=== PATIENT | female | born 1950 | race Caucasian/White ===

== ENCOUNTER → 2016-08-09 | Outpatient (CLI) | payer OTHER ==
[~2016-08-09] VITALS: Ht 165.1 cm; Wt 111.1 kg
[~2016-08-09] MED LIST: CO Q30CA4 PO; FLUO20CA8 PO; LIDOCAINE 2% INJ 100 MG/5 ML SDV (FOR ANES.) As Ordered ONE; MELA0.02 PO; MELO7.5T6 PO; MULTCAP11 PO; NS 1,000 ML IV SCH; PRED10TA PO; PROPOFOL 200 MG/20 ML VIAL As Ordered ONE; VITA200016 PO
--- NOTE | 2016-08-09 09:37 | ROOR ---
Patient Name: Le Rodriguez Procedure Date: 08/09/2016 9:17 AM Date of : 1950 Age: 66 Room: [facility] Gender: Female Note Status: Finalized Procedure: Colonoscopy Indications: High risk colon cancer surveillance: Personal history of colonic polyps, Last colonoscopy: February 2013 Providers: Jitendra RIVERA MD Referring MD: TALA LEDESMA MD Requesting Provider: Medicines: Monitored Anesthesia Care Complications: No immediate complications. Procedure: Pre-Anesthesia Assessment: - The heart rate, respiratory rate, oxygen saturations, blood pressure, adequacy of pulmonary ventilation, and response to care were monitored throughout the procedure. The Colonoscope was introduced through the anus and advanced to the cecum, identified by appendiceal orifice and ileocecal valve. The colonoscopy was performed without difficulty. The patient tolerated the procedure well. The quality of the bowel preparation was good. Findings: The perianal and digital rectal examinations were normal. A diminutive polyp was found in the cecum. The polyp was sessile. The polyp was removed with a cold snare. Resection and retrieval were complete. A few small-mouthed diverticula were found in the sigmoid colon. The exam was otherwise without abnormality on direct and retroflexion views. Impression: - One diminutive polyp in the cecum, removed with a cold snare. Resected and retrieved. - Mild diverticulosis in the sigmoid colon. - The examination was otherwise normal on direct and retroflexion views. Recommendation: - Repeat colonoscopy in 5 years for surveillance. Jitendra Rivera MD Jitendra RIVERA MD 08/09/2016 9:36:45 AM This report has been signed electronically. Number of Addenda: 0 Note Initiated On: 08/09/2016 9:17 AM Estimated Blood Loss: Estimated blood loss: none.
[2016-08-09 09:57] VITALS: BP 143/93
== END ==
LOC: M OPP 08:09
PROVIDERS: ATTEND Internal Medicine Gastroenterology
DX: Z12.11 Encounter for screening for malignant neoplasm of colon (principal); Z86.010 Personal history of colon polyps; D12.0 Benign neoplasm of cecum; K57.30 Diverticulosis of large intestine without perforation or abscess without bleeding; M19.90 Unspecified osteoarthritis, unspecified site; F32.9 Major depressive disorder, single episode, unspecified; M35.3 Polymyalgia rheumatica; Z79.899 Other long term (current) drug therapy; Z88.5 Allergy status to narcotic agent

== ENCOUNTER → 2017-04-27 | Outpatient (CLI) | payer MEDICARE | LOC: M WHC 14:41 | DX: Z01.419 Encounter for gynecological examination (general) (routine) without abnormal findings (principal); Z12.31 Encounter for screening mammogram for malignant neoplasm of breast (principal); Z13.820 Encounter for screening for osteoporosis; Z78.0 Asymptomatic menopausal state | CPT/HCPCS: 77067 ==

== ENCOUNTER → 2019-01-17 | Outpatient (REF) | payer MEDICARE ==
[~2019-01-17] MED LIST changes: -LIDOCAINE 2% INJ 100 MG/5 ML SDV (FOR ANES.) As Ordered ONE; -MELA0.02 PO; +MELA3TAB49 PO; -MELO7.5T6 PO; +MELO7.5T7 PO; -NS 1,000 ML IV SCH; -PRED10TA PO; +PRED10TA2 PO; -PROPOFOL 200 MG/20 ML VIAL As Ordered ONE
[2019-01-19 14:22] LABS: HPV HYBRID CAPTURE II Negative (Negative)
== END ==
LOC: M SFHCWAGY 11:29
PROVIDERS: ATTEND Nurse Practitioner Women's Health
DX: N95.0 Postmenopausal bleeding (principal)
CPT/HCPCS: 87624; G0123; G0463

== ENCOUNTER → 2019-01-26 | Outpatient (REF) | payer MEDICARE | LOC: M SFHCWAGY 10:31 | PROVIDERS: ATTEND Nurse Practitioner Women's Health | DX: N95.0 Postmenopausal bleeding (principal); R93.89 Abnormal findings on diagnostic imaging of other specified body structures ==

== ENCOUNTER → 2019-12-16 | Outpatient (CLI) | payer MEDICARE, MEDICAID ==
[~2019-12-16] MED LIST changes: +FLUO20CA20 PO; -FLUO20CA8 PO
== END ==
LOC: M LABSMTC 09:07
PROVIDERS: ATTEND Anesthesiology
DX: Z01.812 Encounter for preprocedural laboratory examination (principal); Z20.828 Contact with and (suspected) exposure to other viral communicable diseases
CPT/HCPCS: C9803; U0003

== ENCOUNTER 2019-12-21 08:05 | Day surgery (SDC) | payer MEDICARE, MEDICAID ==
[~2019-12-21] VITALS: Ht 165.1 cm; Wt 118.1 kg
[~2019-12-21 08:05] MED LIST changes: +LIDOCAINE 2% 100MG/5ML SDV (FOR ANES.) As Ordered ONE; +NS 1,000 ML IV ONE; +propofoL 200 MG/20 ML VIAL As Ordered ONE
[2019-12-21] MEDS ORDERED: GLUCAGON INJ 1MG VIAL As Ordered ONE (09:34)
[2019-12-21] MEDS ORDERED: propofoL 200 MG/20 ML VIAL As Ordered ONE (09:36)
[2019-12-21 10:21] VITALS: BP 163/93
--- NOTE | 2019-12-26 11:37 | ROOR ---
Patient Name: Le Rodriguez Procedure Date: 12/21/2019 9:22 AM Date of : 1950 Age: 69 Room: [facility] Gender: Female Note Status: Finalized Procedure: Colonoscopy Indications: High risk colon cancer surveillance: Personal history of colonic polyps, Last colonoscopy: July 2016 Providers: Jitendra RIVERA MD Referring MD: TALA LEDESMA MD Requesting Provider: Medicines: Monitored Anesthesia Care Complications: No immediate complications. Procedure: Pre-Anesthesia Assessment: - The heart rate, respiratory rate, oxygen saturations, blood pressure, adequacy of pulmonary ventilation, and response to care were monitored throughout the procedure. The Colonoscope was introduced through the anus and advanced to the cecum, identified by appendiceal orifice and ileocecal valve. The colonoscopy was performed without difficulty. The patient tolerated the procedure well. The quality of the bowel preparation was good. Findings: The perianal and digital rectal examinations were normal. Three sessile polyps were found in the sigmoid colon and ascending colon. The polyps were diminutive in size. These polyps were removed with a cold snare. Resection and retrieval were complete. To prevent bleeding after the polypectomy, two hemostatic clips were successfully placed. Mild sigmoid diverticulosis and small internal hemorrhoids. The exam was otherwise without abnormality on direct and retroflexion views. Impression: - Three diminutive polyps in the sigmoid colon and in the ascending colon, removed with a cold snare. Resected and retrieved. Clips were placed. - Mild sigmoid diverticulosis and small internal hemorrhoids. - The examination was otherwise normal on direct and retroflexion views. Recommendation: - Repeat colonoscopy in 5 years for surveillance. Jitendra Rivera MD Jitendra RIVERA MD 12/21/2019 9:55:14 AM Electronically signed by Jitendra RIVERA MD Number of Addenda: 0 Note Initiated On: 12/21/2019 9:22 AM Estimated Blood Loss: Estimated blood loss: none.
== END 2019-12-21 10:23 | disposition home or self-care (01) ==
LOC: M OPP 08:05
PROVIDERS: ATTEND Internal Medicine Gastroenterology
DX: Z12.11 Encounter for screening for malignant neoplasm of colon (principal); Z86.010 Personal history of colon polyps; K57.30 Diverticulosis of large intestine without perforation or abscess without bleeding; D12.2 Benign neoplasm of ascending colon; D12.5 Benign neoplasm of sigmoid colon; Z79.899 Other long term (current) drug therapy; Z88.1 Allergy status to other antibiotic agents; Z88.5 Allergy status to narcotic agent
CPT/HCPCS: 45385; 88305; J1610

== ENCOUNTER → 2020-02-11 | Outpatient (REF) | payer MEDICARE, MEDICAID ==
[~2020-02-11] MED LIST changes: -LIDOCAINE 2% 100MG/5ML SDV (FOR ANES.) As Ordered ONE; -NS 1,000 ML IV ONE; -propofoL 200 MG/20 ML VIAL As Ordered ONE
== END ==
LOC: M LAB REF 17:10
PROVIDERS: ATTEND Physician Assistant
DX: D23.62 Other benign neoplasm of skin of left upper limb, including shoulder (principal)

== ENCOUNTER → 2020-02-16 | Outpatient (CLI) | payer MEDICARE, MEDICAID | LOC: M LABSMTC 09:32 | PROVIDERS: ATTEND Family Medicine | DX: Z20.828 Contact with and (suspected) exposure to other viral communicable diseases (principal) | CPT/HCPCS: C9803; U0003 ==

== ENCOUNTER → 2020-03-21 | Outpatient (CLI) | payer MEDICARE, MEDICAID ==
--- NOTE | 2020-03-21 16:37 | REPMRS ---
Patient History The patient states she has not had a clinical breast exam in over a year. Family history of breast cancer at age 50 or over in maternal aunt. Benign cyst aspiration of the right breast. Digital Woman Screen Mammo: March 21, 2020 - Exam #: [id number] Bilateral CC and MLO view(s) were taken. Technologist: Belinda Jasso, Technologist Prior study comparison: April 27, 2017, digital woman screen mammo performed at [facility]. March 31, 2016, digital woman screen mammo performed at [facility]. February 13, 2014, digital woman screen mammo performed at [facility]. FINDINGS: The breast tissue is almost entirely fat. The Volpara volumetric breast density category is: A. There has been no change in the appearance of the mammogram from the prior studies. There is no interval development of dominant mass, architectural distortion, or grouped microcalcification typical of malignancy. 3-D tomosynthesis shows no additional findings. Assessment: BI-RADS/ACR category 1 mammogram. Negative Mammogram. Recommendation Routine screening mammogram of both breasts in 1 year (for women over age 40). This patient's [facility] Lifetime Breast Cancer RIsk is estimated at 7.2 %. This mammogram was interpreted with the aid of an FDA-approved computer-aided dectection system. Electronically Signed By: Feliz Phillips MD 03/21/20 [id number]
== END ==
LOC: M WHC 15:02
PROVIDERS: ATTEND Internal Medicine
DX: Z12.31 Encounter for screening mammogram for malignant neoplasm of breast (principal)

== ENCOUNTER → 2021-03-27 | Outpatient (CLI) | payer MEDICARE, MEDICAID ==
[~2021-03-27] MED LIST changes: +ELIQ2.5T PO; +FLUO40CA PO
== END ==
LOC: M LABSMTC 10:45
PROVIDERS: ATTEND Anesthesiology
DX: Z01.812 Encounter for preprocedural laboratory examination (principal); Z20.822 Contact with and (suspected) exposure to COVID-19

== ENCOUNTER → 2021-03-31 | Outpatient (CLI) | payer MEDICARE, MEDICAID ==
[~2021-03-31] MED LIST changes: +FLUO-96 PO; -FLUO20CA20 PO
== END ==
LOC: M LABSMTC 08:24
PROVIDERS: ATTEND Anesthesiology
DX: Z01.812 Encounter for preprocedural laboratory examination (principal); Z11.52 Encounter for screening for COVID-19

== ENCOUNTER 2021-04-01 13:17 | Day surgery (SDC) | payer MEDICARE, MEDICAID ==
[~2021-04-01] VITALS: Ht 165.1 cm; Wt 120.7 kg
[~2021-04-01 13:17] MED LIST changes: +LIDOCAINE 2% 100MG/5ML SDV (FOR ANES.) As Ordered ONE; +LR 1,000 ML IV ONE; +MIDAZOLAM INJ 2MG/2ML VIAL (J2250 PER 1MG) As Ordered ONE; +fentaNYL 100 MCG/2 ML INJECTION As Ordered ONE; +propofoL 200 MG/20 ML VIAL As Ordered ONE
[2021-04-01 13:52] LABS: HEMATOCRIT 44.9 % (36.0-47.0); HEMOGLOBIN 14.9 g/dl (12.0-15.5); MEAN CORPUSCULAR HEMOGLOBIN 29.6 pg (27.0-33.0); MEAN CORPUSCULAR HGB CONC 33.2 g/dl (32.0-36.5); MEAN CORPUSCULAR VOLUME 89.3 fl (80.0-96.0); PLATELET COUNT, AUTOMATED 282 10^3/uL (150-450); RED BLOOD COUNT 5.03 10^6/uL (4.00-5.40); WHITE BLOOD COUNT 7.2 10^3/uL (4.0-10.0)
[2021-04-01] MEDS ORDERED: ROCURONIUM BROMIDE 50 MG/5 ML VIAL As Ordered ONE (15:34)
[2021-04-01] MEDS ORDERED: dexameTHASONE 4 MG/ML 1ML VIAL (J1100 PER 1MG) As Ordered ONE (15:35)
[2021-04-01] MEDS ORDERED: ONDANSETRON 4MG/2ML VIAL As Ordered ONE (15:35)
[2021-04-01] MEDS ORDERED: KETOROLAC 60MG 2ML VIAL As Ordered ONE (15:35)
[2021-04-01] MEDS ORDERED: propofoL 200 MG/20 ML VIAL As Ordered ONE (15:35)
[2021-04-01] MEDS ORDERED: SUGAMMADEX SODIUM 500 MG/5 ML VIAL (BRIDION) As Ordered ONE (15:36)
[2021-04-01] MEDS ORDERED: LR 1,000 ML IV SCH ×2 (16:20)
[2021-04-01] MEDS ORDERED: ACETAMINOPHEN 500 MG TAB PO ONE ×4 (16:20→17:00)
[2021-04-01] MEDS ORDERED: ONDANSETRON 4MG/2ML VIAL IV PRN (16:20)
[2021-04-01] MEDS ORDERED: oxyCODONE 5MG TAB PO PRN (16:20)
[2021-04-01] MEDS ORDERED: fentaNYL 100 MCG/2 ML INJECTION IV PRN (16:20)
[2021-04-01 17:27] VITALS: BP 127/69
== END 2021-04-01 17:44 | disposition home or self-care (01) ==
LOC: M SDC 13:17
PROVIDERS: ATTEND Specialist
DX: N92.4 Excessive bleeding in the premenopausal period (principal); N84.8 Polyp of other parts of female genital tract; G47.30 Sleep apnea, unspecified; E78.5 Hyperlipidemia, unspecified; K21.9 Gastro-esophageal reflux disease without esophagitis
CPT/HCPCS: 36415; 58558; 85027; 88305; J1100; J1885; J2250; J2405; J3010

== ENCOUNTER → 2021-05-14 | Outpatient (CLI) | payer MEDICARE, MEDICAID ==
[~2021-05-14] MED LIST changes: -LIDOCAINE 2% 100MG/5ML SDV (FOR ANES.) As Ordered ONE; -LR 1,000 ML IV ONE; -MIDAZOLAM INJ 2MG/2ML VIAL (J2250 PER 1MG) As Ordered ONE; -fentaNYL 100 MCG/2 ML INJECTION As Ordered ONE; -propofoL 200 MG/20 ML VIAL As Ordered ONE
== END ==
LOC: M WHC 13:58
PROVIDERS: ATTEND Nurse Practitioner Family
DX: Z12.31 Encounter for screening mammogram for malignant neoplasm of breast (principal); Z13.820 Encounter for screening for osteoporosis

== ENCOUNTER → 2021-08-12 | Outpatient (REF) | payer MEDICARE, MEDICAID | LOC: M SFHCDERM 17:19 | PROVIDERS: ATTEND Physician Assistant | DX: L28.1 Prurigo nodularis (principal) ==

== ENCOUNTER 2022-04-11 08:33 | Observation (INO) | payer MEDICARE, MEDICAID ==
[~2022-04-11] VITALS: Ht 165.1 cm; Wt 122.7 kg
[~2022-04-11 08:33] MED LIST changes: +CO Q PO; -CO Q30CA4 PO
[2022-04-11] MEDS ORDERED: ASPIRIN 81MG CHEW TABLET PO ONE (08:50)
[2022-04-11] MEDS ORDERED: METOPROLOL 5 MG/5 ML VIAL IV PRN (08:50)
[2022-04-11 09:13] LABS: BASO # 0.1 10^3/uL (0.0-0.2); BASO % 0.8 % (0.0-1.0); EOS # 0.2 10^3/uL (0.0-0.5); HEMOGLOBIN 16.5 g/dl (12.0-15.5); LYMPH % 33.5 % (24.0-44.0); MEAN CORPUSCULAR HEMOGLOBIN 30.4 pg (27.0-33.0); MEAN CORPUSCULAR HGB CONC 34.4 g/dl (32.0-36.5); MEAN CORPUSCULAR VOLUME 88.4 fl (80.0-96.0); MONO # 0.6 10^3/uL (0.0-0.8); NEUTROPHILS % 56.1 % (36.0-66.0); PLATELET COUNT, AUTOMATED 290 10^3/uL (150-450); RED BLOOD COUNT 5.43 10^6/uL (4.00-5.40); WHITE BLOOD COUNT 8.8 10^3/uL (4.0-10.0)
[2022-04-11 09:36] LABS: INR 0.97; PROTHROMBIN TIME 13.1 SECONDS (12.5-14.5)
[2022-04-11 09:37] LABS: PARTIAL THROMBOPLASTIN TIME 31.5 SECONDS (24.8-34.2)
[2022-04-11] MEDS ORDERED: NS 500 ML IV ONE (09:40)
[2022-04-11] MEDS ORDERED: DIGOXIN INJ 0.5 MG/2 ML AMP IV STA (09:41)
[2022-04-11 09:48] LABS: BILIRUBIN,DIRECT < 0.1 MG/DL (<0.4)
[2022-04-11 09:54] LABS: RSV AMPLIFICATION NEGATIVE (NEGATIVE)
[2022-04-11 10:02] LABS: ALBUMIN 3.4 G/DL (3.2-5.2); ALKALINE PHOSPHATASE 98 U/L (46-116); ALT/SGPT 27 U/L (7.0-40); AST/SGOT 45 U/L (<34); BILIRUBIN,TOTAL 0.5 MG/DL (0.3-1.2); BLOOD UREA NITROGEN 17 MG/DL (9-23); CALCIUM LEVEL 8.8 MG/DL (8.3-10.6); CARBON DIOXIDE LEVEL 21 MMOL/L (20-31); CHLORIDE LEVEL 106 MMOL/L (98-107); CPK CREATINE PHOSPHOKINASE 100 U/L (34-145); CREATININE FOR GFR 0.58 MG/DL (0.55-1.30); GLOMERULAR FILTRATION RATE > 60.0 (>39); GLUCOSE, FASTING 112 MG/DL (74-106); LIPASE 34 U/L (12-53); SODIUM LEVEL 137 MMOL/L (136-145); THYROID STIMULATING HORMONE 1.207 uIU/ML (0.55-4.78); TOTAL PROTEIN 7.5 G/DL (5.7-8.2)
[2022-04-11] MEDS ORDERED: ISOVUE-370 76% 100ML VIAL As Ordered ONE (10:34)
[2022-04-11 10:35] LABS: CK-MB VALUE MASS < 1.0 NG/ML (<3.6)
[2022-04-11 10:53] LABS: CPK CREATINE PHOSPHOKINASE 80 U/L (34-145); MB/CK RELATIVE INDEX 1.25 (< OR =4)
[2022-04-11] MEDS ORDERED: AMIODARONE HCL 150 MG in IV 1 EA IV STA (11:30)
[2022-04-11] MEDS ORDERED: MIDODRINE 5 MG TAB PO STA (11:31)
[2022-04-11] MEDS ORDERED: NS 1,000 ML IV ONE ×2 (11:40→13:00)
[2022-04-11] MEDS: METOPROLOL TART 25 MG TABLET PO SCH ×2 (12:00→18:00)
[2022-04-11] MEDS ORDERED: D3 H400T PO (12:05)
[2022-04-11] MEDS ORDERED: VITMTA PO (12:05)
[2022-04-11] MEDS ORDERED: HOME MED LIST COMPLETE! XX SCH (12:10)
[2022-04-11 12:35] LABS: CK-MB VALUE MASS < 1.0 NG/ML (<3.6)
[2022-04-11 12:36] LABS: CPK CREATINE PHOSPHOKINASE 75 U/L (34-145); MB/CK RELATIVE INDEX 1.33 (< OR =4)
[2022-04-11] MEDS ORDERED: MIDODRINE 5 MG TAB PO ONE (16:00)
[2022-04-11] MEDS ORDERED: DIGOXIN INJ 0.5 MG/2 ML AMP IV SCH (17:00)
[2022-04-11 19:03] LABS: CK-MB VALUE MASS < 1.0 NG/ML (<3.6)
[2022-04-11 19:04] LABS: CPK CREATINE PHOSPHOKINASE 73 U/L (34-145); MB/CK RELATIVE INDEX 1.36 (< OR =4)
[2022-04-11] MEDS: APIXABAN 5 MG TAB (ELIQUIS) PO SCH ×2 (19:07→20:26)
[2022-04-11] MEDS: DIGOXIN 0.125 MG TAB PO SCH (19:14)
[2022-04-11] MEDS ORDERED: FLUoxetine 20MG CAP PO SCH (21:00)
[2022-04-11] MEDS ORDERED: APIXABAN 2.5 MG TAB (ELIQUIS) PO SCH (21:00)
[2022-04-12] VITALS: BP 133/68
[2022-04-12] MEDS: DIGOXIN 0.125 MG TAB PO SCH (00:25)
[2022-04-12 00:50] LABS: CK-MB VALUE MASS < 1.0 NG/ML (<3.6)
[2022-04-12 00:55] LABS: CPK CREATINE PHOSPHOKINASE 74 U/L (34-145); MB/CK RELATIVE INDEX 1.35 (< OR =4)
[2022-04-12] MEDS: METOPROLOL TART 25 MG TABLET PO SCH ×2 (05:48)
[2022-04-12 07:39] LABS: CK-MB VALUE MASS < 1.0 NG/ML (<3.6)
[2022-04-12 07:40] LABS: BLOOD UREA NITROGEN 18 MG/DL (9-23); CALCIUM LEVEL 8.1 MG/DL (8.3-10.6); CARBON DIOXIDE LEVEL 20 MMOL/L (20-31); CHLORIDE LEVEL 107 MMOL/L (98-107); CPK CREATINE PHOSPHOKINASE 63 U/L (34-145); CREATININE FOR GFR 0.52 MG/DL (0.55-1.30); DIGOXIN LEVEL 0.7 NG/ML (0.8-2.0); GLOMERULAR FILTRATION RATE > 60.0 (>39); GLUCOSE, FASTING 96 MG/DL (74-106); MB/CK RELATIVE INDEX 1.58 (< OR =4); POTASSIUM SERUM 4.4 MMOL/L (3.5-5.1); SODIUM LEVEL 137 MMOL/L (136-145)
[2022-04-12 07:45] LABS: HEMATOCRIT 43.2 % (36.0-47.0); MEAN CORPUSCULAR HGB CONC 33.1 g/dl (32.0-36.5); MEAN CORPUSCULAR VOLUME 90.6 fl (80.0-96.0); PLATELET COUNT, AUTOMATED 271 10^3/uL (150-450); RED BLOOD COUNT 4.77 10^6/uL (4.00-5.40); WHITE BLOOD COUNT 9.1 10^3/uL (4.0-10.0)
[2022-04-12 07:52] LABS: HEMOGLOBIN 14.3 g/dl (12.0-15.5)
[2022-04-12] MEDS: APIXABAN 5 MG TAB (ELIQUIS) PO SCH (08:04)
[2022-04-12] MEDS ORDERED: METO1TAB87 PO (08:10)
[2022-04-12] MEDS ORDERED: ELIQ5TAB PO (08:10)
[2022-04-12] MEDS ORDERED: SELF1KIT MC (08:11)
[2022-04-12] MEDS ORDERED: MULTIVITAMINS/MINERALS THERAP 1 TAB PO SCH (09:00)
[2022-04-12 09:18] VITALS: BP 149/77
== END 2022-04-12 16:21 | disposition home or self-care (01) ==
LOC: M ED 08:33 → M ED INP 08:34 → UNDOADMIN 11:31 → M ED INP 11:31 → UNDODISIN 04-12 16:21
PROVIDERS: ADMIT General Practice; ATTEND General Practice
DX: I48.91 Unspecified atrial fibrillation (principal); I10 Essential (primary) hypertension; E78.5 Hyperlipidemia, unspecified; F32.A Depression, unspecified; G47.33 Obstructive sleep apnea (adult) (pediatric); G47.00 Insomnia, unspecified; E66.9 Obesity, unspecified; Z68.42 Body mass index [BMI] 45.0-49.9, adult; Z86.711 Personal history of pulmonary embolism; Z87.891 Personal history of nicotine dependence; Z79.899 Other long term (current) drug therapy; Z79.01 Long term (current) use of anticoagulants; Z88.5 Allergy status to narcotic agent; Z88.1 Allergy status to other antibiotic agents
CPT/HCPCS: 36415; 71045; 71275; 80048; 80076; 80162; 82550; 82553; 83690; 83735; 84439; 84443; 84484; 85025; 85027; 85610; 85730; 87040; 87631; 93005; 93041; 94760; 96361; 96365; 96375; 99285; G0378; J0282; J1160; Q9967

== ENCOUNTER → 2022-06-23 | Outpatient (CLI) | payer MEDICARE, MEDICAID ==
[~2022-06-23] MED LIST changes: +D3 H400T PO; +ELIQ5TAB PO; +METO1TAB87 PO; +SELF1KIT MC; +VITMTA PO
== END ==
LOC: M WHC 15:03
PROVIDERS: ATTEND Nurse Practitioner Family
DX: Z12.31 Encounter for screening mammogram for malignant neoplasm of breast (principal)

== ENCOUNTER → 2023-07-07 | Outpatient (CLI) | payer MEDICARE, MEDICAID | LOC: M WHC 12:36 | PROVIDERS: ATTEND Internal Medicine | DX: Z12.31 Encounter for screening mammogram for malignant neoplasm of breast (principal) ==

== ENCOUNTER → 2023-10-05 | Outpatient (REF) | payer MEDICARE, MEDICAID | LOC: M SFHCDERM 17:40 | PROVIDERS: ATTEND Physician Assistant | DX: C44.629 Squamous cell carcinoma of skin of left upper limb, including shoulder (principal) ==

== ENCOUNTER → 2023-11-25 | Outpatient (REF) | payer MEDICARE, MEDICAID | LOC: M SFHCDERM 17:22 | PROVIDERS: ATTEND Physician Assistant | DX: C44.92 Squamous cell carcinoma of skin, unspecified (principal) ==

== ENCOUNTER → 2024-01-13 | Outpatient (CLI) | payer MEDICARE, MEDICAID | LOC: M RAD 12:39 | PROVIDERS: ATTEND Otolaryngology | DX: K11.20 Sialoadenitis, unspecified (principal); E04.2 Nontoxic multinodular goiter ==

== ENCOUNTER → 2024-03-27 | Outpatient (CLI) | payer MEDICARE, MEDICAID | LOC: M RAD 12:59 | PROVIDERS: ATTEND Otolaryngology | DX: E04.1 Nontoxic single thyroid nodule (principal) ==

== ENCOUNTER → 2024-08-28 | Outpatient (CLI) | payer MEDICARE, MEDICAID ==
[~2024-08-28] MED LIST changes: +LIDOCAINE 1% MDV 20ML VIAL As Ordered ONE
[2024-08-28 13:40] VITALS: TEMP 97
[2024-08-28 14:25] VITALS: BP 150/80; O2SAT 97
== END ==
LOC: M IRPRO 13:28
PROVIDERS: ATTEND Otolaryngology
DX: E04.1 Nontoxic single thyroid nodule (principal)

== ENCOUNTER → 2024-12-24 | Outpatient (CLI) | payer MEDICARE, MEDICAID ==
[~2024-12-24] MED LIST changes: -LIDOCAINE 1% MDV 20ML VIAL As Ordered ONE
[2024-12-24] MEDS: LIDOCAINE 1% MDV 20 ML VIAL SC STA (10:19)
[2024-12-24 10:32] VITALS: BP 132/82; TEMP 97.3; O2SAT 96
== END ==
LOC: M IRPRO 10:16
PROVIDERS: ATTEND Otolaryngology
DX: E04.1 Nontoxic single thyroid nodule (principal)

== ENCOUNTER → 2025-01-02 | Outpatient (CLI) | payer MEDICARE, MEDICAID | LOC: M WHC 13:49 | PROVIDERS: ATTEND Internal Medicine | DX: Z12.31 Encounter for screening mammogram for malignant neoplasm of breast (principal) ==